=== PATIENT | female | born 1935 | race Caucasian/White ===

== ENCOUNTER → 2017-09-21 | Outpatient (CLI) | payer OTHER, MEDICARE ==
[~2017-09-21] MED LIST: ADULT LOW DOSE81 MG PO; ARIMIDEX PO; CLONIDINE PO; DIOVAN HCT 1601 EAC1 PO; KLOR-CON PO; MACROBID 100 M100 M1 PO; NEXIUM40 MG PO; NORVASC 5 MG TAB5 MG PO; PRAVACHOL80 MG PO
== END ==
LOC: LABMALL 09:20 → CAT 16:34
PROVIDERS: Family Medicine
DX: K86.2 Cyst of pancreas (principal); K86.9 Disease of pancreas, unspecified; K44.9 Diaphragmatic hernia without obstruction or gangrene

== ENCOUNTER → 2019-11-24 | Outpatient (CLI) | payer OTHER, MEDICARE | LOC: SJCVC 13:09 → SJCVCIMAG 14:21 → SJCVC 14:21 | DX: I34.0 Nonrheumatic mitral (valve) insufficiency (principal); I45.10 Unspecified right bundle-branch block; R94.31 Abnormal electrocardiogram [ECG] [EKG]; M35.00 Sjogren syndrome, unspecified; E78.00 Pure hypercholesterolemia, unspecified; I10 Essential (primary) hypertension; M10.9 Gout, unspecified; Z78.9 Other specified health status; Z79.899 Other long term (current) drug therapy; Z87.891 Personal history of nicotine dependence ==

== ENCOUNTER → 2020-08-30 | Outpatient (CLI) | payer OTHER, MEDICARE | LOC: SJCVC 14:41 | PROVIDERS: ATTEND Internal Medicine Cardiovascular Disease | DX: R94.31 Abnormal electrocardiogram [ECG] [EKG] (principal); I45.10 Unspecified right bundle-branch block; I10 Essential (primary) hypertension; E78.2 Mixed hyperlipidemia; M35.00 Sjogren syndrome, unspecified; R06.00 Dyspnea, unspecified; M10.9 Gout, unspecified; Z98.890 Other specified postprocedural states; Z88.8 Allergy status to other drugs, medicaments and biological substances; Z79.899 Other long term (current) drug therapy; Z86.16 Personal history of COVID-19; Z87.891 Personal history of nicotine dependence ==

== ENCOUNTER → 2021-03-27 | Outpatient (CLI) | payer OTHER, MEDICARE | LOC: SJCVC 13:48 | PROVIDERS: ATTEND Internal Medicine Cardiovascular Disease | DX: I45.10 Unspecified right bundle-branch block (principal); R94.31 Abnormal electrocardiogram [ECG] [EKG]; I49.1 Atrial premature depolarization; I10 Essential (primary) hypertension; E78.2 Mixed hyperlipidemia; M35.00 Sjogren syndrome, unspecified; M10.9 Gout, unspecified; E87.6 Hypokalemia; Z87.891 Personal history of nicotine dependence; Z79.891 Long term (current) use of opiate analgesic; Z79.899 Other long term (current) drug therapy; Z88.1 Allergy status to other antibiotic agents; Z88.8 Allergy status to other drugs, medicaments and biological substances; Z86.16 Personal history of COVID-19 ==